=== PATIENT | female | born 1995 | race Caucasian/White ===

== ENCOUNTER 2018-08-18 18:20 | Emergency (ER) | payer OTHER ==
--- NOTE | 2018-08-18 20:43 | ED PDOC ---
HPI: CCC, URI, Sore Throat Time Seen by Provider: 08/18/18 19:02 Chief Complaint (Nursing): ENT Problem Chief Complaint (Provider): Sore Throat, Nasal Congestion, Occasional Dry Cough History Per: Patient History/Exam Limitations: no limitations Onset/Duration Of Symptoms: Hrs Additional Complaint(s): 22 year old female with no significant medical history presents to ED with sore throat, nasal congestion, occasional dry cough that have worsened since yesterday. She took Nyquil with no relief. Patient reports that there is a little mucus in her blood when blowing her nose but there is no actual epistaxis. Additionally, she denies any fever, recent travel, difficulty swallowing or breathing. LNMP was 07/23. PMD: Eliezer Nicholson Past Medical History Reviewed: Historical Data, Nursing Documentation, Vital Signs Vital Signs: Last Vital Signs Temp 98.9 F 08/18/18 18:24 Pulse 80 08/18/18 18:24 Resp 20 08/18/18 18:24 BP 118/86 08/18/18 18:24 Pulse Ox 98 08/18/18 18:24 Primary Care Provider: FAMILY PROVIDER,NO - Medical History PMH: No Chronic Diseases - Surgical History Surgical History: No Surg Hx - Family History Family History: States: No Known Family Hx - Social History Current smoker - smoking cessation education provided: No Alcohol: None Drugs: Denies - Home Medications Home Medications: Ambulatory Orders Medication Instructions Recorded Ibuprofen [Motrin Tab] 600 mg PO Q6 PRN #20 tab 08/18/18 Pseudoephedrine HCl [Sudafed 120 mg PO BID #12 tablet.er 08/18/18 12-Hour] - Allergies Allergies/Adverse Reactions: Allergies Allergy/AdvReac Type Severity Reaction Status Date / Time No Known Allergies Allergy Verified 08/18/18 18:24 Review of Systems ROS Statement: Except As Marked, All Systems Reviewed And Found Negative Constitutional: Negative for: Fever ENT: Positive for: Nose Discharge (little blood with mucus), Nose Congestion. Negative for: Throat Pain (sore throat but no difficulty swallowing) Respiratory: Positive for: Cough (occasional dry). Negative for: Shortness of Breath Physical Exam - Reviewed Nursing Documentation Reviewed: Yes Vital Signs Reviewed: Yes - Physical Exam Comments: GENERAL APPEARANCE: Patient is awake, alert, oriented x 3, in no acute distress. SKIN: Warm, dry; (-) cyanosis. EYES: (-) conjunctival pallor. ENMT: Mucous membranes moist. Nose: (-)bleeding Airway patent: (-) stridor. Pharynx: (-) swelling, (+) erythema, (-) exudate, (+) mild tonsillar inflammation. NECK: (-) tenderness, (-) stiffness, (-) lymphadenopathy. CHEST AND RESPIRATORY: (-) rhonchi, (-) rales, (-) wheezes, (-) pleural rub; breath sounds equal bilaterally. HEART AND CARDIOVASCULAR: (-) irregularity; (-) murmur, (-) gallop. ABDOMEN AND GI: Soft; (-) tenderness. EXTREMITIES: (-) deformity; (-) edema. NEURO AND PSYCH: Mental status as above. Cranial nerves grossly intact; strength symmetric. - ECG O2 Sat by Pulse Oximetry: 98 (RA) Pulse Ox Interpretation: Normal Medical Decision Making Medical Decision Making: Time: 2029 Initial Plan: --Strep --flu --ibuprofen strep and flu negative Disucssed results, diagnosis, treatment, return precautions nad f/u with pt who is understanding, in agreement and stable for dc --------- Scribe Attestation: Documented by Michael Juares acting as a scribe for Shiva Ybarra PA-C. Provider Scribe Attestation: All medical record entries made by the Scribe were at my direction and personally dictated by me. I have reviewed the chart and agree that the record accurately reflects my personal performance of the history, physical exam, medical decision making, and the department course for this patient. I have also personally directed, reviewed, and agree with the discharge instructions and disposition. Disposition - Clinical Impression Clinical Impression: Pharyngitis, Nasal congestion - Patient ED Disposition Is Patient to be Admitted: No Counseled Patient/Family Regarding: Studies Performed, Diagnosis, Need For Followup, Rx Given - Disposition Referrals: Eliezer Nicholson MD [Family Provider] - Disposition: Routine/Home Disposition Time: 20:06 Condition: STABLE Additional Instructions: Thank you for letting us take care of you today. The emergency medical care you received today was directed at your acute symptoms. If you were prescribed any medication, please fill it and take as directed. It may take several days for your symptoms to resolve. Return to the Emergency Department if your symptoms worsen, do not improve, or if you have any other problems. Please contact your doctor in 2 days for re-evaluation and follow up / or call one of the physicians/clinics you have been referred to that are listed on the Patient Visit Information form that is included in your discharge packet. Bring any paperwork you were given at discharge with you along with any medications you are taking to your follow up visit. Our treatment cannot replace ongoing medical care by a primary care provider (PCP) outside of the emergency department. Prescriptions: Ibuprofen [Motrin Tab] 600 mg PO Q6 PRN #20 tab PRN Reason: Pain, Moderate (4-7) Pseudoephedrine HCl [Sudafed 12-Hour] 120 mg PO BID #12 tablet.er Instructions: Viral Pharyngitis, Sinusitis in Adults, Cough, Runny Nose, and the Common Cold (DC) Forms: [facility] ED School/Work Excuse Print Language: BENGALI - POA Present On Arrival: None
[2018-08-18 21:01] VITALS: BP 123/81; PULSE 79; RESP 18; TEMP 98.7
[2018-08-18 23:38] VITALS: O2SAT 98
== END 2018-08-18 21:00 | disposition home or self-care (01) ==
LOC: H.ER 18:20
DX: J02.9 Acute pharyngitis, unspecified (principal); R09.81 Nasal congestion